=== PATIENT | male | born 1990 | race Caucasian/White ===

== ENCOUNTER 2017-05-09 02:23 | Emergency (ER) | payer MEDICAID ==
[2017-05-09 02:25] VITALS: O2SAT 100
[2017-05-09 02:41] LABS: I-STAT POTASSIUM 3.7 MMOL/L (3.5-4.9)
[2017-05-09 02:42] LABS: AUTOMATED NEUTROPHIL # 8.6 TH/MM3 (1.8-7.7); BASOPHIL # 0.1 TH/MM3 (0-0.2); BASOPHIL % 0.8 % (0.0-2.0); EOSINOPHIL # 0.3 TH/MM3 (0-0.4); EOSINOPHIL % 1.9 % (0.0-4.0); HEMATOCRIT 37.6 % (39.0-51.0); HEMO FLAGS DIFF FINAL; LYMPH % 26.3 % (9.0-44.0); LYMPHOCYTE # 3.5 TH/MM3 (1.0-4.8); MEAN CELL VOLUME 101.5 FL (80.0-100.0); MEAN CORPUSCULAR HEMOGLOBIN 35.3 PG (27.0-34.0); MEAN CORPUSCULAR HGB CONC 34.8 % (32.0-36.0); MONO % 6.7 % (0.0-8.0); NEUT % 64.3 % (16.0-70.0); PLATELET COUNT 389 TH/MM3 (150-450); RED BLOOD COUNT 3.71 MIL/MM3 (4.50-5.90); RED CELL DISTRIBUTION WIDTH 12.7 % (11.6-17.2); WHITE BLOOD COUNT 13.3 TH/MM3 (4.0-11.0)
[2017-05-09 02:54] LABS: APTT (PATIENT) 23.4 SEC (24.3-30.1); PROTHROMBIN TIME - PATIENT 10.6 SEC (9.8-11.6)
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
--- NOTE | 2017-05-09 06:05 | RADRPT ---
EXAM DATE/TIME: 05/09/2017 05:36 [facility] COMPARISON: CHEST SINGLE AP, May 09, 2017, 2:27. INDICATIONS : Short of breath,check on ptx. MEDICAL HISTORY : None. SURGICAL HISTORY : None. ENCOUNTER: Initial ACUITY: 1 day PAIN SCORE: 0/10 LOCATION: Bilateral chest FINDINGS: Lungs are symmetrically aerated and grossly clear. Left apical pneumothorax is no longer seen. There is no evidence of hemothorax. Cardiomediastinal contours are stable accounting for differences in [place] and projection. Minimal air is again seen in the left supra-clavicular region. CONCLUSION: Pneumothorax is no longer seen. Damion Patton MD on May 09, 2017 at 6:01 Board Certified Radiologist. This report was verified electronically.
[2017-05-09 07:00] VITALS: BP 109/58; PULSE 92; RESP 16; O2SAT 99
[2017-05-09 08:00] VITALS: BP 98/51; PULSE 84; RESP 17; O2SAT 99
== END 2017-05-09 10:07 | disposition home or self-care (01) ==
LOC: EDBD 02:23 → NEPE 02:23
DX: S41.012A Laceration without foreign body of left shoulder, initial encounter (principal); S50.812A Abrasion of left forearm, initial encounter; R06.02 Shortness of breath; Z23 Encounter for immunization; W45.8XXA Other foreign body or object entering through skin, initial encounter
CPT/HCPCS: 12002; 71010; 80307; 82435; 82565; 82947; 84132; 84295; 84520; 85025; 85610; 85730; 86850; 86900; 86901; 90471; 96374; 99291; G0390